=== PATIENT | male | born 1950 | race Caucasian/White ===

== ENCOUNTER 2017-05-03 15:11 | Observation (INO) | payer OTHER ==
--- NOTE | 2017-05-03 15:33 | CPEKG ---
Heart Rate: 80 RR Interval: 750 P-R Interval: 176 QRSD Interval: 88 QT Interval: 408 QTC Interval: 471 P Minerva: 65 QRS Minerva: -27 T Wave Minerva: 54 EKG Severity - OTHERWISE NORMAL ECG - EKG Impression: SINUS RHYTHM EKG Impression: BORDERLINE LEFT AXIS DEVIATION Electronically Signed By: Gerald Alvarez 03-May-2017 18:52:44
[2017-05-03 15:40] LABS: PLATELET COUNT 177 10^3/uL (150-400)
[2017-05-03] MEDS ORDERED: NS 1,000 ML IV ONE (16:10)
--- NOTE | 2017-05-03 16:10 | EDPHY ---
H & P Time Seen by Provider: 05/03/17 15:50 HPI/ROS: Chief complaint. Shortness of breath HPI. Patient is 66-year-old male with dry cough and shortness of breath for 1 week. Progressively getting somewhat more short of breath. Not sick. No fever. Dyspnea especially with exertion but he notes even today time his shoes. He did have some right side chest and back pain that is not worse with deep breathing or exertion. He has had a previous pulmonary embolus. He flew from [facility] 1 week ago. He is no longer on blood thinners. No unusual leg pain or swelling. Patient has unknown hemangioma right chest and had a PET scan in September that showed this. It was not cancerous. He did have a pneumonia shot 1 week ago ROS Constitutional. no fever/chills, no weakness Eyes. no problems with vision ENT. no sore throat, no nasal drainage Cardiovascular. no chest pain Respiratory. Shortness of breath and dry cough Abdominal. no abdominal pain, no nausea/vomiting, no diarrhea . no problems urinating MS. no calf pain/swelling, no neck/back pain, no joint pain Skin. no rash Lymph. no swollen glands Neuro. no headache, no dizziness, no difficulty walking or with speech Past Medical/Surgical History: Past medical history significant for hypertension, depression, hepatitis, pulmonary embolus Social History: , nonsmoker, no alcohol Smoking Status: Never smoked Physical Exam: General Appearance: Alert well-developed male mild distress vital signs significant for O2 saturation 91-93% on room air Eyes: Pupils equal and round no pallor or injection. ENT, Mouth: Mucous membranes are moist. Respiratory: There are no retractions, lungs are clear to auscultation. Cardiovascular: Regular rate and rhythm. Gastrointestinal: Abdomen is soft and nontender, no masses, bowel sounds normal. Neurological: Awake and alert, sensory and motor exams grossly normal. Skin: Warm and dry, no rashes. Musculoskeletal: Neck is supple nontender. Extremities symmetrical, full range of motion. Psychiatric: Patient is oriented X 3, there is no agitation. Constitutional: Initial Vital Signs Temperature (C) 36.6 C 05/03/17 15:14 Heart Rate 86 05/03/17 15:14 Respiratory Rate 20 05/03/17 15:14 Blood Pressure 151/102 H 05/03/17 15:14 O2 Sat (%) 93 05/03/17 15:14 O2 Delivery Mode Room Air Allergies/Adverse Reactions: Penicillins Allergy (Verified 05/03/17 15:13) Home Medications: Medication Instructions Recorded Cyanocobalamin [Vitamin B12 (*)] 1,000 mcg PO DAILY 09/08/15 LORazepam [Ativan (*)] 1 mg PO TID 09/08/15 Losartan Potassium [Cozaar 50 mg 50 mg PO DAILY 09/08/15 (*)] Methylphenidate HCl [Ritalin 20mg 20 mg PO BID@08,14 09/08/15 (*)] Multivitamins [Multivitamin (*)] 1 each PO DAILY 09/08/15 Zolpidem Tartrate [Ambien 5MG (*)] 10 mg PO HS 09/08/15 buPROPion SR [Wellbutrin 150mg SR 150 mg PO DAILY 09/08/15 (*)] Dabigatran Etexilate Mesyl 150 mg PO BID #60 cap 09/11/15 [Pradaxa 150 MG (*)] HYDROcodone/CPM TUSSIONEX 5 ml PO Q8 PRN #0 ml 09/11/15 [Tussionex Suspension (*)] Propranolol Sr 05/03/17 Medical Decision Making - Diagnostics EKG Interpretation: EKG interpreted by me shows normal sinus rhythm normal interval. Left axis deviation. QRS is otherwise normal without she drip S Schoech under depression. No arrhythmia. The rate is 80 Imaging Results: CT angiogram reviewed by me and discussed with Dr. Lofton shows bilateral pulmonary embolus. Procedures: IV normal saline Lovenox ordered at 5:00 p.m. ED Course/Re-evaluation: Re-evaluation at 5:05 p.m.. Patient is stable. He and I discussed imaging and lab results. We discussed treatment plan including recommendation for admission. He expresses understanding and agreement I consulted and discussed the case with , hospitalist, who agrees to the admission Differential Diagnosis: I considered pneumonia, congestive heart failure, pulmonary embolus - Data Points Laboratory Results: Laboratory Results 05/03/17 15:30 05/03/17 15:30 05/03/17 05/03/17 05/03/17 15:34 15:30 15:30 WBC RBC Hgb Hct MCV MCH MCHC RDW Plt Count MPV Neut % (Auto) Lymph % (Auto) [place] % (Auto) Eos % (Auto) Baso % (Auto) Nucleat RBC Rel Count Absolute Neuts (auto) Absolute Lymphs (auto) Absolute Monos (auto) Absolute Eos (auto) Absolute Basos (auto) Absolute Nucleated RBC Immature Gran % Seg Neutrophils % Lymphocytes % Monocytes % Eosinophils % Immature Gran # Absolute Seg Neuts Absolute Lymphocytes Absolute Monocytes Absolute Eosinophils RBC/WBC/PLT Morphology Atypical Lymphocytes Platelet Estimate Smear Review By D-Dimer 3.87 ug/mLFEU H ug/mLFEU (0.00-0.50) Sodium 141 mEq/L mEq/L (135-145) Potassium 4.2 mEq/L mEq/L (3.5-5.2) Chloride 110 mEq/L mEq/L (97-110) Carbon Dioxide 19 mEq/l L mEq/l (22-31) Anion Gap 12 mEq/L mEq/L (8-16) BUN 12 mg/dL mg/dL (7-23) Creatinine 1.1 mg/dL mg/dL (0.7-1.3) Estimated GFR > 60 Glucose 89 mg/dL mg/dL (70-100) Calcium 9.1 mg/dL mg/dL (8.5-10.4) Troponin I 0.032 ng/mL ng/mL (0.000-0.034) NT-Pro-B Natriuret Pep 2160 pg/mL H pg/mL (0-125) 05/03/17 15:30 WBC 11.60 10^3/uL H 10^3/uL (3.80-9.50) RBC 5.16 10^6/uL 10^6/uL (4.40-6.38) Hgb 16.6 g/dL g/dL (13.7-17.5) Hct 47.9 % % (40.0-51.0) MCV 92.8 fL fL (81.5-99.8) MCH 32.2 pg pg (27.9-34.1) MCHC 34.7 g/dL g/dL (32.4-36.7) RDW 13.4 % % (11.5-15.2) Plt Count 177 10^3/uL 10^3/uL (150-400) MPV 11.2 fL fL (8.7-11.7) Neut % (Auto) Not Reported Lymph % (Auto) Not Reported [place] % (Auto) Not Reported Eos % (Auto) Not Reported Baso % (Auto) Not Reported Nucleat RBC Rel Count 0.0 % % (0.0-0.2) Absolute Neuts (auto) Not Reported Absolute Lymphs (auto) Not Reported Absolute Monos (auto) Not Reported Absolute Eos (auto) Not Reported Absolute Basos (auto) Not Reported Absolute Nucleated RBC 0.00 10^3/uL 10^3/uL (0-0.01) Immature Gran % Not Reported Seg Neutrophils % 71 % % Lymphocytes % 15 % % Monocytes % 7 % % Eosinophils % 7 % % Immature Gran # Not Reported Absolute Seg Neuts 8.24 10^/uL H 10^/uL (1.70-6.50) Absolute Lymphocytes 1.74 10^3/uL 10^3/uL (1.00-3.00) Absolute Monocytes 0.81 10^3/uL H 10^3/uL (0.30-0.80) Absolute Eosinophils 0.81 10^3/uL H 10^3/uL (0.03-0.40) RBC/WBC/PLT Morphology NORMAL (NORMAL) Atypical Lymphocytes 2+ H Platelet Estimate ADEQUATE (ADEQ) Smear Review By Pending D-Dimer Sodium Potassium Chloride Carbon Dioxide Anion Gap BUN Creatinine Estimated GFR Glucose Calcium Troponin I NT-Pro-B Natriuret Pep Medications Given: Discontinued Medications Sodium Chloride (Ns) 1,000 mls @ 0 mls/hr IV ONCE ONE; Wide Open PRN Reason: Protocol Stop: 05/03/17 16:11 Last Admin: 05/03/17 16:32 Dose: 1,000 mls Departure - Departure Disposition: [facility] Clinical Impression: Pulmonary emboli Qualifiers: Pulmonary embolism type: other Chronicity: acute Acute cor pulmonale presence: with acute cor pulmonale Qualified Code(s): I26.09 - Other pulmonary embolism with acute cor pulmonale Condition: Fair Referrals: MODESTO MENDENHALL [Primary Care Provider] - As per Instructions
[2017-05-03] MEDS ORDERED: IOPAMIDOL (ISOVUE 370) 100 ML BTL IV ONE (16:14)
[2017-05-03] MEDS ORDERED: ENOXAPARIN 100 MG/ML SYR SC ONE ×2 (16:52→17:15)
[2017-05-03] MEDS ORDERED: ONDANSETRON DISINTEGRATING 4 MG TAB PO PRN (18:42)
[2017-05-03] MEDS ORDERED: ONDANSETRON 4 MG/2 ML VIAL IVP PRN (18:42)
[2017-05-03] MEDS ORDERED: LORazepam 1 MG TAB PO PRN (18:46)
--- NOTE | 2017-05-03 18:50 | PDGENHP ---
History and Physical - Chief Complaint SOB - History of Present Illness 66 yo male with hx of P.E. 2 years ago, who was on Pradaxa until a year ago, who was traveling from [place] recently and presents with SOB. In the E.D, he is found to have bilateral PE's with mild right heart strain. He has been started on Lovenox. He does not have any leg swelling or pain. Other than P.E.' s in 2016, he has no other history of VTE. He has a hx of HTN but no other chronic CV disease. he denies leg swelling. 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 Smoking Status: Never smoked FmHx: no hx of clotting disorder History Information - Allergies/Home Medication List Allergies/Adverse Reactions: Penicillins Allergy (Verified 05/03/17 15:13) Home Medications: LORazepam [Ativan (*)] 1 mg PO HS PRN 09/08/15 [Last Taken 05/02/17] Losartan Potassium [Cozaar 50 mg (*)] 50 mg PO DAILY 09/08/15 [Last Taken ] Methylphenidate HCl [Ritalin 20mg (*)] 20 mg PO BID@08,14 PRN 09/08/15 [Last Taken 05/03/17 08:00] Zolpidem Tartrate [Ambien 5MG (*)] 10 mg PO HS PRN 09/08/15 [Last Taken 05/02/17 ] buPROPion SR [Wellbutrin 150mg SR (*)] 150 mg PO DAILY 09/08/15 [Last Taken ] I have personally reviewed and updated: medical history, social history - Social History Smoking Status: Never smoked Review of Systems Review of Systems: ROS: 10pt was reviewed & negative except for what was stated in HPI & below Physical Exam Physical Exam: Temp Pulse Resp BP Pulse Ox 37.2 C 67 18 141/95 H 91 L 05/03/17 18:45 05/03/17 18:45 05/03/17 18:45 05/03/17 18:45 05/03/17 18:45 Constitutional: no apparent distress, appears nourished Eyes: PERRL, EOMI Ears, Nose, Mouth, Throat: moist mucous membranes, hearing normal, ears appear normal Cardiovascular: regular rate and rhythym, no murmur, rub, or gallop, No JVD, No edema Respiratory: no respiratory distress, no rales or rhonchi, clear to auscultation Gastrointestinal: normoactive bowel sounds, soft, non-tender abdomen Genitourinary: no bladder fullness Skin: warm Musculoskeletal: full muscle strength Neurologic: AAOx3 Psychiatric: interacting appropriately, not anxious, not encephalopathic Lymph, Heme, Immunologic: No petechiae Lab Data & Imaging Review 05/03/17 15:30 05/03/17 15:30 WBC 11.60 10^3/uL (3.80-9.50) H 05/03/17 15:30 RBC 5.16 10^6/uL (4.40-6.38) 05/03/17 15:30 Hgb 16.6 g/dL (13.7-17.5) 05/03/17 15:30 Hct 47.9 % (40.0-51.0) 05/03/17 15:30 MCV 92.8 fL (81.5-99.8) 05/03/17 15:30 MCH 32.2 pg (27.9-34.1) 05/03/17 15:30 MCHC 34.7 g/dL (32.4-36.7) 05/03/17 15:30 RDW 13.4 % (11.5-15.2) 05/03/17 15:30 Plt Count 177 10^3/uL (150-400) 05/03/17 15:30 MPV 11.2 fL (8.7-11.7) 05/03/17 15:30 Neut % (Auto) Not Reported 05/03/17 15:30 Lymph % (Auto) Not Reported 05/03/17 15:30 [place] % (Auto) Not Reported 05/03/17 15:30 Eos % (Auto) Not Reported 05/03/17 15:30 Baso % (Auto) Not Reported 05/03/17 15:30 Nucleat RBC Rel Count 0.0 % (0.0-0.2) 05/03/17 15:30 Absolute Neuts (auto) Not Reported 05/03/17 15:30 Absolute Lymphs (auto) Not Reported 05/03/17 15:30 Absolute Monos (auto) Not Reported 05/03/17 15:30 Absolute Eos (auto) Not Reported 05/03/17 15:30 Absolute Basos (auto) Not Reported 05/03/17 15:30 Absolute Nucleated RBC 0.00 10^3/uL (0-0.01) 05/03/17 15:30 Immature Gran % Not Reported 05/03/17 15:30 Seg Neutrophils % 71 % 05/03/17 15:30 Lymphocytes % 15 % 05/03/17 15:30 Monocytes % 7 % 05/03/17 15:30 Eosinophils % 7 % 05/03/17 15:30 Immature Gran # Not Reported 05/03/17 15:30 Absolute Seg Neuts 8.24 10^/uL (1.70-6.50) H 05/03/17 15:30 Absolute Lymphocytes 1.74 10^3/uL (1.00-3.00) 05/03/17 15:30 Absolute Monocytes 0.81 10^3/uL (0.30-0.80) H 05/03/17 15:30 Absolute Eosinophils 0.81 10^3/uL (0.03-0.40) H 05/03/17 15:30 RBC/WBC/PLT Morphology NORMAL (NORMAL) 05/03/17 15:30 Atypical Lymphocytes 2+ H 05/03/17 15:30 Platelet Estimate ADEQUATE (ADEQ) 05/03/17 15:30 D-Dimer 3.87 ug/mLFEU (0.00-0.50) H 05/03/17 15:30 Sodium 141 mEq/L (135-145) 05/03/17 15:30 Potassium 4.2 mEq/L (3.5-5.2) 05/03/17 15:30 Chloride 110 mEq/L (97-110) 05/03/17 15:30 Carbon Dioxide 19 mEq/l (22-31) L 05/03/17 15:30 Anion Gap 12 mEq/L (8-16) 05/03/17 15:30 BUN 12 mg/dL (7-23) 05/03/17 15:30 Creatinine 1.1 mg/dL (0.7-1.3) 05/03/17 15:30 Estimated GFR > 60 05/03/17 15:30 Glucose 89 mg/dL (70-100) 05/03/17 15:30 Calcium 9.1 mg/dL (8.5-10.4) 05/03/17 15:30 Troponin I 0.032 ng/mL (0.000-0.034) 05/03/17 15:30 NT-Pro-B Natriuret Pep 2160 pg/mL (0-125) H 05/03/17 15:34 Assessment & Plan Assessment: #Acute bilateral P.E. #Hx of HTN #Attention Deficit Disorder #Leukocytosis, likely reactive, no e/o infection Plan: -Cont Lovenox which was started in the E.D -Check TTE and Dopplers -Can likely d/c home tomorrow on oral agents if stable and further w/u is negative -Full code All imaging and labs reviewed
[2017-05-03] MEDS ORDERED: ENOXAPARIN 100 MG/ML SYR SC SCH (21:00)
[2017-05-03] MEDS: ZOLPIDEM TARTRATE 5 MG TAB PO PRN (21:39)
[2017-05-03] MEDS: ACETAMINOPHEN 325 MG TAB PO PRN (21:40)
[2017-05-04 05:03] LABS: PLATELET COUNT 148 10^3/uL (150-400)
[2017-05-04] MEDS: buPROPion SR 150 MG TAB PO SCH (10:39)
[2017-05-04] MEDS: ENOXAPARIN 100 MG/ML SYR SC SCH ×2 (10:39→21:10)
--- NOTE | 2017-05-04 10:43 | ECHO ---
[email or web address] [address] [address] Main: [phone] Fax: [email or web address] Echocardiogram Name: LUTHER JOHN MR#: [id number] Study Date: 05/04/2017 Study Time: 08:24 AM Date of : 1950 Age: 66 year(s) Height: 180.3 cm (71 in.) Weight: 93.44 kg (206 lb.) BSA: 2.14 m2 Gender: Male Examination: Echo Indication: PE, Eval Rt heart strain Image Quality: Contrast: Requested by: Paul Esteves BP: / Heart Rate: Rhythm: Normal sinus rhythm Indication: PE, Eval Rt heart strain Procedure Staff Ham Stripper: Trevor Worley RDCS Reading Physician: Evert García MD Requesting Provider: Conclusions: Normal global systolic LV function. EF is 62 %. Mildly reduced RV function. Trivial mitral valve regurgitation. Mild tricuspid regurgitation is present. The pulmonary artery pressure is mild to moderately increased. Measurements: Chambers Valvular Assessment AV/MV Valvular Assessment TV/PV Normal Normal Normal Name Value Range Name Value Range Name Value Range Ao Alisia (MM): 3.8 cm (2.2 cm-3.7 AV Vmax: 1.03 m/s (1 m/s-1.7 TR Vmax: 3.19 mm/s ( - ) cm) m/s) TR PGmax: 41 mmHg ( - ) IVSd (2D): 1.0 cm (0.6 cm-1.1 AV maxP mmHg ( - ) syst. PAP: 46 mmHg ( - ) cm) LVOT Vmax: 0.76 m/s (0.7 m/s-1.1 PV Vmax: 0.98 m/s (0.6 m/s-0.9 LVDd (2D): 4.5 cm (4.2 cm-5.9 m/s) m/s) cm) MV E Vmax: 0.40 m/s ( - ) PV PGmax: 4 mmHg ( - ) LVDs (2D): 3.0 cm (2.1 cm-4 MV A Vmax: 0.50 m/s ( - ) cm) MV E/A: 0.80 ( - ) LVPWd (2D): 1.2 cm (0.6 cm-1 cm) LVEF (2D): 62 (>=54 %) RVDd(2D): 4.0 cm (1.9 cm-3.8 cmmm) Continued Measurements: Chambers Valvular Assessment AV/MV Valvular Assessment TV/PV Name Value Name Value Name Value LADs Lon.4 cm MV E' Septal: 0.05 m/s CVP (est.): 5 mmHg Patient: LUTHER JOHN Study Date: 05/04/2017 Page 1 of 2 08:24 AM LA Area: 19.4 cm2 MV E/E' Septal: 7.70 LA Volume: 50 ml MV E/E' Lateral: 7.60 LA Volume Index: 23.4 ml/m2 TAPSE: 2.0 cm Findings: Left Ventricle: Normal size left ventricle. Normal global systolic LV function. EF is 62 %. No regional wall motion abnormality. Diastolic dysfunction is present. . Right Ventricle: Upper normal size right ventricle. Mildly reduced RV function. Flattened interventricular septum consistent with right ventricular pressure and/or volume overload free wall. Left Atrium: The left atrium is normal in size. Right Atrium: The right atrium is normal in size. Mitral Valve: The mitral valve is normal in appearance and function. Trivial mitral valve regurgitation. Aortic Valve: The aortic valve is tri-leaflet and functions normally. Tricuspid Valve: The tricuspid valve appears normal. Mild tricuspid regurgitation is present. The pulmonary artery pressure is mild to moderately increased. Pulmonic Valve: The pulmonic valve is normal in appearance. Trivial pulmonic valve regurgitation. Aorta: The aorta is normal. Pericardium: No pericardial effusion. (No Signature Object) Patient: LUTHER JOHN Study Date: 05/04/2017 Page 2 of 2 08:24 AM [id number]
--- NOTE | 2017-05-04 11:11 | HOSPPROG ---
Hospitalist Progress Note Assessment/Plan: 66 yo M w recurrrent PE, high clot burden and RUL cavitary lesion PE: large clot burden but w stable hemodynamics echo w some R heart strain but RV still moving no 02 requirement continue lovenox for 7 days before trasitioning to DOAc RUL cavitary lesion: c/w sequelae of recent pneumonia outpt follow up scan in three months dispo: home today if passes ambulatory RA challenge > 30 minutes Subjective: case d/w minor Objective: Vital Signs Temp Pulse Resp BP Pulse Ox 36.6 C 57 L 16 128/86 H 96 05/04/17 07:38 05/04/17 07:38 05/04/17 07:38 05/04/17 07:38 05/04/17 07:38 Laboratory Results 05/04/17 04:52 05/04/17 04:52 05/03/17 05/04/17 05/05/17 05:59 05:59 05:59 Intake Total 250 Balance 250 - Physical Exam Constitutional: no apparent distress, appears nourished Eyes: PERRL, anicteric sclera Ears, Nose, Mouth, Throat: moist mucous membranes, hearing normal Cardiovascular: regular rate and rhythym, no murmur, rub, or gallop Respiratory: no respiratory distress, no rales or rhonchi Gastrointestinal: normoactive bowel sounds, soft, non-tender abdomen Genitourinary: no bladder fullness, No esparza in urethra Skin: warm, normal color Musculoskeletal: full muscle strength Neurologic: AAOx3 ICD10 Worksheet Patient Problems: Problems Problem Status Onset Pulmonary emboli Acute
--- NOTE | 2017-05-04 12:12 | ASMTCMCOM ---
CM Note CM Note Notes: Spoke w/RN, anticipate pt will dc home with support of when medically stable. CM available for any changes. DC Plan: Independent Date Signed: 05/04/2017 12:11 PM Electronically Signed By:Mary Man RN
--- NOTE | 2017-05-04 14:01 | PDHOMEO2F ---
Home Oxygen Face to Face Home Orders: I certify that a physician or a nurse practitioner or physician's assistant press operator has had a [id number] encounter with this patient on the date of this order due to the diagnosis listed, which relates to the primary reason the patient requires home oxygen. Alternative treatments have been tried, or considered, and deemed ineffective. It is anticipated that supplemental oxygen will result in improvement with treatment. Home oxygen qualifying diagnosis: pe SpO2 on room air (%): 83 Frequency of home oxygen needed: continuous Home oxygen liters per minute: 2 Home oxygen delivery device: nasal cannula Concentrator: No E-tanks for mobility and back up: Yes If ordering portable O2, is the patient mobile in the home?: Yes I certify that, based on these findings, the home oxygen is medically necessary for this patient for the following length of time. Length of time home oxygen needed: 1 month
--- NOTE | 2017-05-04 16:53 | GCON ---
[f rep st] CONSULTATION PULMONARY/CRITICAL CARE CONSULTATION DATE OF CONSULTATION: 05/04/2017 REFERRING PHYSICIAN: Anderson Bee MD REASON FOR REFERRAL: Evaluation and management of pulmonary embolism. HISTORY: The patient is a 66-year-old male with a history of pulmonary embolism 2 years ago that was treated with Pradaxa for a year. He travels [place] to [place], and had been feeling a b it nonspecifically unwell, with weakness/fatigue, for about 5-6 weeks. He flew back from the [facility] a week ago, and developed some shortness of breath, which he thinks started after that trip. He presented to the emergency department with an increase in the shortness of breath. He was found to have pulmonary emboli and was admitted to the hospital. He is feeling a bit better, with less dyspne a. He is able to walk around the room without feeling lightheadedness. He denies pleuritic chest pa in. PAST MEDICAL HISTORY: 1. Hypertension. 2. Depression. 3. Hepatitis. 4. ADD. MEDICATIONS: At the time of admission include Ativan, Cozaar, Ritalin, Ambien, and Wellbutrin. ALLERGIES: Penicillin. SOCIAL HISTORY: The patient has never smoked. FAMILY HISTORY: Negative for venous thromboembolism. REVIEW OF SYSTEMS: A 10-point review of systems adds nothing to the history of present illness. PHYSICAL EXAMINATION: GENERAL: The patient is awake, alert, in no acute distress. VITAL SIGNS: Bl ood pressure is 152/95 with a heart rate of 114. He is afebrile. Oxygen saturations are 92% on 2 L. His saturations were 88% on room air this morning. HEENT: Normocephalic and atraumatic. No icter us. NECK: No JVD. Trachea is midline. CHEST: Clear to auscultation. CARDIAC: Regular rate and rhythm without murmur. ABDOMEN: Soft and nontender. Bowel sounds are present. EXTREMITIES: No cl ubbing, cyanosis, or edema. LABORATORY AND X-RAY DATA: A chemistry group is unremarkable. A BNP is 2160. A CBC is remarkable f or a platelet count of 148. A CT scan of the chest shows moderate-large volume of bilateral pulmonar y embolism. The intraventricular septum is straightened/slightly bowed. There is also a 2.2 cm cyst ic/solid right apical lung nodule that is new compared to prior CT scan. Images reviewed by me. An echocardiogram shows an ejection fraction of 62% with diastolic dysfunction and no regional wall farnaz on abnormalities. There is trivial pulmonic valve regurgitation. The intraventricular septum is fla ttened with mildly reduced RV function. An ultrasound of the lower extremities demonstrates a short segment of DVT in the left calf below the knee. ASSESSMENT: Moderate-large bilateral pulmonary emboli. The patient has signs of some RV strain, wit h a flattened septum and an elevated BNP. He is mildly tachycardic but otherwise hemodynamically sta ble and has not had syncope/presyncope. The likely inciting factor was his travel a week ago. This is his 2nd pulmonary embolism. RECOMMENDATIONS: Continued observation overnight. I have asked him to increase his activity level. He will likely need oxygen for a short period of time after hospitalization while he is here at [facility]. I would anticipate anticoagulation indefinitely. He can be continued on Lovenox for a few mor e days for its anticoagulant and anti-inflammatory benefits. He could then be changed to Pradaxa or another oral anticoagulant. I can see the patient in routine followup prior to anticipated travel andrew serna to the [facility]. /[id number]/MODL
[2017-05-04] MEDS: ACETAMINOPHEN 325 MG TAB PO PRN (21:18)
[2017-05-04] MEDS: ZOLPIDEM TARTRATE 5 MG TAB PO PRN (21:18)
[2017-05-05] MEDS ORDERED: LOSARTAN POTASSIUM 50 MG TAB PO SCH (09:00)
[2017-05-05] MEDS: ENOXAPARIN 100 MG/ML SYR SC SCH (09:26)
[2017-05-05] MEDS: buPROPion SR 150 MG TAB PO SCH (09:26)
--- NOTE | 2017-05-05 10:35 | CPEKG ---
Heart Rate: 63 RR Interval: 952 P-R Interval: 192 QRSD Interval: 94 QT Interval: 464 QTC Interval: 476 P Fillmore: 61 QRS Fillmore: -9 T Wave Fill[place]: 14 EKG Severity - NORMAL ECG - EKG Impression: SINUS RHYTHM Electronically Signed By: Shilo Mcguire 05-May-2017 12:51:31
[2017-05-05 11:20] VITALS: BP 133/84; PULSE 68; RESP 16; TEMP 97.6; O2SAT 95
--- NOTE | 2017-05-05 12:50 | PDDCSUM ---
Discharge Summary Discharge Summary: 66 yo M w recurrrent PE, high clot burden and RUL cavitary lesion. He was treated with Lovenox. He will cont Lovenox for a total of 7 days and then transition to Pradaxa lifetime. He will likely require supplemental O2 for the short term. Please see below for details. consultants: Jeremy Mckenzie Pulmonology PE: large clot burden bilaterally but w stable hemodynamics echo w some R heart strain but RV still moving no 02 requirement continue lovenox for 7 days then transition to Pradaxa Left calf DVT Intermittent Bradycardia: EKG today shows NSR RUL cavitary lesion: c/w sequelae of recent pneumonia outpt follow up scan in three months Exam: NAD rrr cta b s/nt/nd no le edema Meds: see med rec f/u: with Dr. Mckenzie total time spent on d/c is 35 minutes
== END 2017-05-05 14:30 | disposition home or self-care (01) ==
LOC: INTOOBSV 17:05 → F3E 18:35
PROVIDERS: ADMIT Family Medicine; ATTEND Family Medicine
DX: I26.09 Other pulmonary embolism with acute cor pulmonale (principal); R91.1 Solitary pulmonary nodule; I82.442 Acute embolism and thrombosis of left tibial vein; R00.1 Bradycardia, unspecified; I10 Essential (primary) hypertension; F90.9 Attention-deficit hyperactivity disorder, unspecified type; D72.829 Elevated white blood cell count, unspecified; Z86.711 Personal history of pulmonary embolism
CPT/HCPCS: 71275; 93005; 93306; 93970; 96360; 96372; 99285; G0378; J1650; Q9967